=== PATIENT | male | born 1955 | race Hispanic/Latino ===

== ENCOUNTER → 2024-10-27 | Outpatient (CLI) | payer OTHER ==
[~2024-10-27] MED LIST: AEC81 PO; FISH1CAP49 PO; GABA-531 PO; LISI20TA24 PO; METF-446 PO; METO50TA18 PO; MOEX1TAB5 PO; MULT-660 PO; PROB500T26 PO; ROSU40 PO; TOPI200T PO
--- NOTE | 2024-10-27 16:56 | HMCIMG ---
EXAM: CT IACs without Intravenous Contrast. CLINICAL HISTORY: 69-year-old male with otitis media. TECHNIQUE: Axial computed tomography images of the temporal bones without intravenous contrast. Dose reduction technique was used including one or more of the following: automated exposure control, adjustment of mA and kV according to patient size, and/or iterative reconstruction. CONTRAST: None. COMPARISON: None provided. FINDINGS: TEMPORAL BONES: Unremarkable. Right-sided mastoid airspaces are not opacified, possibly atretic in nature versus postsurgical changes. Left mastoid airspaces are unremarkable. BONES: No acute fracture or focal osseous lesion. No periosteal reaction. SINUSES: No sinus air-fluid level as visualized. SOFT TISSUES: No soft tissue gas. No radiopaque foreign body. IMPRESSION: 1. No acute abnormalities. 2. Post-surgical changes of the right-side temporal bone, correlate with surgical history. /[place]
== END | disposition home or self-care (01) ==
LOC: RAH 13:16
PROVIDERS: ATTEND Otolaryngology
DX: H66.91 Otitis media, unspecified, right ear (principal)
CPT/HCPCS: 70480